=== PATIENT | male | born 1970 | race American Indian/Alaskan Native ===

== ENCOUNTER 2018-05-16 12:35 | Emergency (ER) | payer BC, OTHER ==
--- NOTE | 2018-05-16 14:37 | Emergency Department Report ---
Blank Doc - Documentation Documentation: 48-year-old male presents to the Hospital complaining of right inguinal and right testicular pain progressively worsened for the past 1-2 weeks. Patient states he had a right internal hernia repair here sometime between 2005 at 2007. He states his groin pain and right testicular pain are worsening and he' s been having some swelling. Intermittent nausea reported without vomiting or fever. Patient also denies dysuria or penile discharge On exam I do not appreciate any current inguinal direct or indirect hernia and I able to palpate the inguinal ring without difficulty and without clnical signs of intestinal herniation. There isn't any scrotal swelling. Patient does however have a right epididymal tenderness. UA pending GC chlamydia from urine ordered Testicular ultrasound ordered. Midlevel to follow
[2018-05-16 14:44] LABS: Bilirubin,Urine NEG (Negative); Blood,Urine SM (Negative); Color,Urine Yellow (Yellow); Protein,Urine <15 mg/dL mg/dL (Negative)
--- NOTE | 2018-05-16 15:07 | Emergency Department Report ---
ED Abdominal Pain HPI - General Chief Complaint: Abdominal Pain Stated Complaint: ABD PAIN Time Seen by Provider: 05/16/18 14:15 Source: patient Mode of arrival: Ambulatory Limitations: No Limitations - History of Present Illness Initial Comments: This is a 48-year-old -[place] male presents with right inguinal pain radiating to right testicular pain progressively worsened for the past 1-2 weeks. Patient states he had a right internal hernia repair here sometime between 2005 at 2007. He states his groin pain and right testicular pain are worsening and he's been having some swelling. Patient states right testicle initially was enlarged but has improved over the past 3-4 days. Intermittent nausea reported without vomiting or fever. Denies dysuria or penile discharge, low back pain. MD Complaint: other (right inguinal pain) Onset/Timin -: week(s) Radiation: other (right testicle) Migration to: no migration Severity: mild Severity scale (0 -10): 4 Quality: aching Consistency: intermittent Improves With: nothing Worsens With: movement Context: other (lifting at work) Associated Symptoms: denies other symptoms Treatments Prior to Arrival: NSAIDs - Related Data Previous Rx's Medication Instructions Recorded Last Taken Type Methocarbamol [Robaxin] 750 mg PO Q8H PRN #21 tablet 12/14/14 Unknown Rx traMADol [Ultram 50 MG tab] 50 mg PO Q6HR PRN #20 tablet 12/14/14 Unknown Rx Naproxen [Naprosyn] 500 mg PO BID #15 tablet 05/16/18 Unknown Rx Allergies Allergy/AdvReac Type Severity Reaction Status Date / Time No Known Allergies Allergy Verified 06/14/14 21:34 ED Review of Systems ROS: Stated complaint: ABD PAIN Other details as noted in HPI Constitutional: denies: chills, fever Respiratory: denies: cough, shortness of breath, wheezing Cardiovascular: denies: chest pain, palpitations Gastrointestinal: other (right inguinal pain). denies: abdominal pain, nausea, diarrhea Genitourinary: testicular pain (right testicular pain and swelling). denies: urgency, dysuria, discharge Skin: denies: rash, lesions Neurological: denies: headache, weakness, paresthesias Psychiatric: denies: anxiety, depression ED Past Medical Hx - Past Medical History Hx Hypertension: No Hx CVA: No Hx Heart Attack/AMI: No - Surgical History Additional Surgical History: hernia repair - Social History Smoking Status: Current Every Day Smoker Substance Use Type: Alcohol - Medications Home Medications: Home Medications Medication Instructions Recorded Confirmed Last Taken Type Methocarbamol [Robaxin] 750 mg PO Q8H PRN #21 tablet 12/14/14 Unknown Rx traMADol [Ultram 50 MG tab] 50 mg PO Q6HR PRN #20 tablet 12/14/14 Unknown Rx Naproxen [Naprosyn] 500 mg PO BID #15 tablet 05/16/18 Unknown Rx ED Physical Exam - General Limitations: No Limitations General appearance: alert, in no apparent distress - Respiratory Respiratory exam: Present: normal lung sounds bilaterally. Absent: respiratory distress - Cardiovascular Cardiovascular Exam: Present: regular rate, normal rhythm. Absent: systolic murmur, diastolic murmur, rubs, gallop - GI/Abdominal GI/Abdominal exam: Present: soft, normal bowel sounds. Absent: organomegaly, mass - exam: Present: testicular tenderness (right testicular tenderness), circumcision. Absent: urethral discharge, scrotal swelling, vertical testicular lie External exam: Present: normal external exam. Absent: erythema, swelling, lesions, lacerations, ecchymosis, bleeding ED Course Vital Signs 05/16/18 12:45 Temperature 98.3 F Pulse Rate 97 H Respiratory 18 Rate Blood Pressure 148/97 O2 Sat by Pulse 98 Oximetry ED Medical Decision Making - Radiology Data Radiology results: report reviewed EXAM: US TESTICULAR DOPPLER COMP HISTORY: right testicular pain TECHNIQUE: Directed sonography of the scrotum. PRIORS: None. FINDINGS: Right testicle measures 3.9 x 2.2 x 2.6 cm. Left testicle measures 3.9 x 2.0 x 3.0 cm. Normal homogeneous echogenicity. No intratesticular masses. Blood flow present bilaterally. Small cystic foci x2 in right epididymal head, largest measuring 6 mm. Ovoid, cystic focus in left inferior hemiscrotum separate from left testicle measuring 1.5 x 1.3 cm possibly epididymal, but nonspecific. Otherwise, left epididymis unremarkable. Small bilateral hydroceles, left greater than right. IMPRESSION: 1. No intratesticular masses or evidence of torsion. 2. Right spermatoceles x2, and extratesticular cystic focus in left inferior hemiscrotum possibly representing epididymal cyst versus partially loculated hydrocele, but nonspecific. Followup may be warranted. - Medical Decision Making This is a 48-year-old -[place] male who presents with right inguinal and testicle pain for one week. Patient was examined by me and Dr. Kaminski. Vitals are stable and in no acute distress. Obtained a urinalysis and testicular ultrasound. Urinalysis small blood otherwise unremarkable. 1. No intratesticular masses or evidence of torsion. 2. Right spermatoceles x2, and extratesticular cystic focus in left inferior hemiscrotum possibly representing epididymal cyst versus partially loculated hydrocele, but nonspecific. Followup may be warranted. Naproxen for pain. Discussed results with patient. Follow up Urology, referrals given. Discharged home in stable condition. F/U with in 2-3 days. Critical care attestation.: If time is entered above; I have spent that time in minutes in the direct care of this critically ill patient, excluding procedure time. ED Disposition Clinical Impression: Epididymal cyst, Right inguinal pain Disposition: - TO HOME OR SELFCARE Is pt being admited?: No Does the pt Need Aspirin: No Condition: Stable Instructions: Groin Pain (ED), Testicle Pain (ED) Additional Instructions: Follow up with Urology for management of epididymal cyst. Take ibuprofen or naproxen for pain. Prescriptions: Naproxen [Naprosyn] 500 mg PO BID #15 tablet Referrals: [facility] [Provider Group] - 3-5 Days INES MCNEAL MD [Staff Physician] - 3-5 Days Forms: Work/School Release Form(ED) Time of Disposition: 18:23 Print Language: FRENCH
--- NOTE | 2018-05-16 16:20 | Ultrasound Report ---
FINAL REPORT EXAM: US TESTICULAR DOPPLER COMP HISTORY: right testicular pain TECHNIQUE: Directed sonography of the scrotum. PRIORS: None. FINDINGS: Right testicle measures 3.9 x 2.2 x 2.6 cm. Left testicle measures 3.9 x 2.0 x 3.0 cm. Normal homogeneous echogenicity. No intratesticular masses. Blood flow present bilaterally. Small cystic foci x2 in right epididymal head, largest measuring 6 mm. Ovoid, cystic focus in left inferior hemiscrotum separate from left testicle measuring 1.5 x 1.3 cm possibly epididymal, but nonspecific. Otherwise, left epididymis unremarkable. Small bilateral hydroceles, left greater than right. IMPRESSION: 1. No intratesticular masses or evidence of torsion. 2. Right spermatoceles x2, and extratesticular cystic focus in left inferior hemiscrotum possibly representing epididymal cyst versus partially loculated hydrocele, but nonspecific. Followup may be warranted.
[2018-05-16 18:33] VITALS: BP 124/89
== END 2018-05-16 18:33 | disposition home or self-care (01) ==
LOC: ED 12:35
DX: L72.0 Epidermal cyst (principal); F17.200 Nicotine dependence, unspecified, uncomplicated
CPT/HCPCS: 81001; 87591; 93975; 99284

== ENCOUNTER 2019-05-08 18:49 | Emergency (ER) | payer OTHER, BC ==
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
[2019-05-08 19:11] VITALS: BP 158/98
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
[2019-05-08] MEDS ORDERED: TYLENOL PO ONE (20:42)
[2019-05-08] MEDS ORDERED: IBUPROFEN PO ONE (20:42)
== END 2019-05-08 20:51 | disposition home or self-care (01) ==
LOC: ED 18:49
DX: S16.1XXA Strain of muscle, fascia and tendon at neck level, initial encounter (principal); F17.200 Nicotine dependence, unspecified, uncomplicated; Z98.890 Other specified postprocedural states; V89.2XXA Person injured in unspecified motor-vehicle accident, traffic, initial encounter; Y93.89 Activity, other specified; Y92.488 Other paved roadways as the place of occurrence of the external cause; Y99.8 Other external cause status
CPT/HCPCS: 72040; 99283